=== PATIENT | female | born 1980 | race Two or more races ===

== ENCOUNTER 2021-06-17 12:03 | Emergency (ER) | payer OTHER ==
[~2021-06-17] VITALS: Ht 152.4 cm; Wt 65.3 kg
[2021-06-17] MEDS ORDERED: [UNRECOGNIZED DRUG - OTHER] (12:19)
== END 2021-06-17 13:21 | disposition home or self-care (01) ==
LOC: ER 12:03
DX: S41.141A Puncture wound with foreign body of right upper arm, initial encounter (principal); X58.XXXA Exposure to other specified factors, initial encounter; Y93.9 Activity, unspecified; Y92.9 Unspecified place or not applicable; Y99.9 Unspecified external cause status

== ENCOUNTER 2022-05-09 09:29 | Day surgery (SDC) | payer OTHER ==
[~2022-05-09 09:29] MED LIST: COLESTID1 GM PO; [UNRECOGNIZED DRUG - OTHER]
== END 2022-05-09 19:15 | disposition home or self-care (01) ==
LOC: CIR.AMB 09:29
PROVIDERS: ATTEND Obstetrics & Gynecology Maternal & Fetal Medicine
DX: O02.1 Missed abortion (principal); O72.2 Delayed and secondary postpartum hemorrhage; Z88.2 Allergy status to sulfonamides; Z20.822 Contact with and (suspected) exposure to COVID-19